=== PATIENT | male | born 1990 | race African-American/Black ===

== ENCOUNTER 2016-10-01 21:27 | Emergency (ER) | payer SELFPAY ==
[~2016-10-01] VITALS: Ht 182.9 cm; Wt 72.6 kg
[2016-10-01 21:30] VITALS: BP 141/77
[2016-10-01] MEDS ORDERED: HYDROcodone/APAP 5/325MG 1 TAB TABLET ONE (21:51)
[2016-10-01] MEDS ORDERED: HYDR-971 PO (21:52)
[2016-10-01] MEDS ORDERED: SULF1TAB24 PO (21:52)
--- NOTE | 2016-10-01 21:52 | PHYS DOC ---
Past Medical History Past Medical History: No Pertinent History Past Surgical History: No Surgical History Alcohol Use: Occasionally Drug Use: Marijuana Adult General Chief Complaint Chief Complaint: ABSCESS HPI HPI Patient is a 26 year old male who presents with an abscess of the left earlobe that began 3 or 4 days ago. Review of Systems Review of Systems Constitutional: Denies fever or chills [] Integument: abscess of the left earlobe Neurologic: Denies headache, focal weakness or sensory changes [] Endocrine: Denies polyuria or polydipsia [] Current Medications Current Medications Current Medications Medications (Trade) Dose Ordered Sig/Concepcion Start Time Stop Time Status Last Admin Dose Admin Acetaminophen/ Hydrocodone Bitart (Lortab 5/325) 1 tab STK-MED ONCE 10/01/16 21:51 10/01/16 21:52 DC Allergies Allergies Allergies Coded Allergies Type Severity Reaction Last Updated Verified No Known Drug Allergies 10/01/16 No Physical Exam Physical Exam Constitutional: Well developed, well nourished, no acute distress, non-toxic appearance. [] Skin: Left earlobe is pierced. Left posterior earlobe with moderate swelling consistent with an abscess. The area is fluctuant erythematosus and warm to touch. Back: No tenderness, no CVA tenderness. [] Extremities: No tenderness, no cyanosis, no clubbing, ROM intact, no edema. [] Neurologic: Alert and oriented X 3, normal motor function, normal sensory function, no focal deficits noted. [] Psychologic: Affect normal, judgement normal, mood normal. [] Current Patient Data Vital Signs Vital Signs Date Time Temp Pulse Resp B/P (MAP) Pulse Ox O2 Delivery O2 Flow Rate FiO2 10/01/16 21:30 98.8 90 16 95 Room Air 98.8 EKG EKG [] Radiology/Procedures Radiology/Procedures Indication: abscess left ear lobe Procedure: The patient was positioned appropriately. Local anesthesia was N/A. An incision was then made over the apex of the lesion and moderate amount of bloody purulent yellow material was expressed. The drainage cavity was irrigated and covered with band aid. The patients tetanus status updated as needed. The patient tolerated the procedure well. Complications: none.[] Course & Med Decision Making Course & Med Decision Making Pertinent Labs and Imaging studies reviewed. (See chart for details) This is a 26-year-old male patient with left pierced earlobe presenting to the ED with left earlobe abscess. Patient status is up-to-date. The abscess was drained as noted in procedures. Discharged with Bactrim. Provided return precautions. Discharged in stable condition. Rachel Disclaimer Rachel Disclaimer This electronic medical record was generated, in whole or in part, using a voice recognition dictation system. Departure Departure Impression: Primary Impression: Abscess of left earlobe Disposition: HOME, SELF-CARE Condition: STABLE Patient Instructions: Abscess, Care After Additional Instructions: You were seen for an abscess of the left earlobe. Keep the area clean and dry. Apply warm compresses to the area twice a day. Ensure you complete your antibiotics. Your earing hole might close. Do not wear any earrings on the affected side until the infection has cleared completely. If you need to re- montgomery the ear wait until the infection has cleared then do it. Scripts Hydrocodone/Apap 5-325 (NORCO 5-325 TABLET) 1 Each Tablet 1 TAB PO PRN Q6HRS Y for PAIN, #10 TAB 0 Refills Prov: MARILYNN ANDREWS APRN 10/01/16 Sulfamethoxazole/Trimethoprim (BACTRIM DS TABLET) 1 Each Tablet 1 TAB PO BID, #20 TAB Prov: MARILYNN ANDREWS APRN 10/01/16 MARILYNN ANDREWS APRN Oct 01, 2016 21:52
[2016-10-01] MEDS ORDERED: HYDROcodone/APAP 5/325MG 1 TAB TABLET PO ONE (22:00)
== END 2016-10-01 21:58 | disposition home or self-care (01) ==
LOC: ER 21:27
DX: H60.02 Abscess of left external ear (principal); F12.10 Cannabis abuse, uncomplicated
CPT/HCPCS: 69000; 99284-25